=== PATIENT | male | born 1980 | race Caucasian/White ===

== ENCOUNTER 2024-02-21 13:54 | Emergency (ER) | payer SELFPAY ==
[~2024-02-21] VITALS: Ht 188 cm; Wt 99.6 kg
[2024-02-21 14:04] VITALS: TEMP 97.8
[2024-02-21] MEDS ORDERED: VOLTAREN 75 DR75 MG PO (15:10)
[2024-02-21] MEDS ORDERED: ZITHROMAX Z PA250 MG PO (15:10)
[2024-02-21 15:21] VITALS: BP 121/52; PULSE 73
== END 2024-02-21 15:21 | disposition home or self-care (01) ==
LOC: COL.ER 13:54
DX: J20.9 Acute bronchitis, unspecified (principal); M72.2 Plantar fascial fibromatosis; F17.290 Nicotine dependence, other tobacco product, uncomplicated